=== PATIENT | female | born 1995 | race Caucasian/White ===

== ENCOUNTER 2019-06-01 17:47 | Emergency (ER) | payer SELFPAY ==
[~2019-06-01] VITALS: Ht 152.4 cm; Wt 77.0 kg
[~2019-06-01 17:47] MED LIST: CEPH-443 PO; IBUP-1542 PO
[2019-06-01 17:52] VITALS: Ht 152.4 cm; Wt 77.0 kg
[2019-06-01] MEDS ORDERED: KETOROLAC 30 MG INJ IM STA (18:52)
[2019-06-01 19:35] VITALS: BP 147/90; PULSE 69; RESP 18
--- NOTE | 2019-06-01 21:02 | ERD ---
ER Documentation Chief Complaint Chief Complaint RAMAN,DIZZINESS, NAUSEA HPI This is a previously healthy 23-year-old female presenting to the emergency department with complaints of increased urinary frequency for the past 4 days. Associated symptoms include body aches, headaches, and vague symptoms of lightheadedness. She also reports a fever up to 101 F yesterday. She states her symptoms are mild in severity. She denies any syncope, neck pain, neck stiffness, or other symptoms at this time. ROS All systems reviewed and are negative except as per history of present illness. Medications Home Meds Active Scripts Ibuprofen* (Motrin*) 600 Mg Tab, 600 MG PO Q6, #30 TAB Prov:SILVINO GRANT PA-C 06/01/19 Cephalexin* (Keflex*) 500 Mg Capsule, 500 MG PO BID for 7 Days, CAP Prov:SILVINO GRANT PA-C 06/01/19 Allergies Allergies: Coded Allergies: No Known Allergy (Unverified , 06/01/19) PMhx/Soc History of Surgery: Yes (cyst on ovaries) Hx Alcohol Use: No Hx Substance Use: No Hx Tobacco Use: No Smoking Status: Never smoker FmHx Family History: No diabetes Physical Exam Vitals Vital Signs Date Temp Pulse Resp B/P (MAP) Pulse Ox O2 O2 Flow FiO2 Time Delivery Rate 06/01/19 98.7 69 18 147/90 97 Room Air 19:35 (109) 06/01/19 98.0 72 18 132/77 99 17:52 (95) Physical Exam Const: No acute distress Head: Atraumatic Eyes: Normal Conjunctiva ENT: Normal External Ears, Nose and Mouth. Neck: Full range of motion. No meningismus. Resp: Clear to auscultation bilaterally Cardio: Regular rate and rhythm, no murmurs Abd: Soft, non tender, non distended. Normal bowel sounds Neuro: M/S: Alert and oriented Face: EOMI, face and pharynx with normal sensation and function Motor: Normal strength throughout Sensation: Normal sensation throughout Speech: Normal Cerebel: Normal coordination Normal gait Skin: No petechiae or rashes Back: No midline or flank tenderness Ext: No cyanosis, or edema Neur: Awake and alert Psych: Normal Mood and Affect Results 24 hrs Laboratory Tests Test 06/01/19 18:42 06/01/19 19:01 POC Beta HCG, Qualitative NEGATIVE Bedside Urine pH (LAB) 5.5 Bedside Urine Protein (LAB) Negative Bedside Urine Glucose (UA) Negative Bedside Urine Ketones (LAB) Negative Bedside Urine Blood Trace-lysed Bedside Urine Nitrite (LAB) Negative Bedside Urine Leukocyte Esterase (L Trace Current Medications Medications Dose Sig/Theron Start Time Status Last (Trade) Ordered Route PRN Stop Time Admin Dose Reason Admin Ketorolac 30 mg ONCE STAT 06/01/19 DC 06/01/19 Tromethamine IM 18:52 06/01/19 18:56 (Toradol) 18:54 Procedures/MDM 23-year-old female presenting with concerns for intermittent lightheadedness, increased urinary frequency, and body aches. Urine dip was concerning for mild urinary tract infection. No evidence to suggest pyonephritis, sepsis, seizure, CVA, TIA, or other emergency. Patient was significantly proved after administration of Toradol in the department. Her vital signs are stable. She is nontoxic and well-appearing. She is appropriate for outpatient management at this time. She will be given prescriptions to further treat her symptoms at home. She was advised to return immediately for any new or concerning symptoms. She was advised to have 24 to 48-hour follow-up with her primary care physician. Patient understands and agrees with the plan. Laboratory investigation seemed inappropriate because: Pt seemed well hydrated, systemically stable, and without evidence of acute anemia, kidney disease, liver disease, pancreatitis, or electrolyte imbalance. Head Ct Risks and Benefits: CT Scan of the head was discussed with all present and we agree at this time that a trial of watchful waiting is most appropriate. Departure Diagnosis: Primary Impression: UTI (urinary tract infection) Condition: Fair Patient Instructions: Understanding Urinary Tract Infections (UTIs) Referrals: [facility] YOU HAVE RECEIVED A MEDICAL SCREENING EXAM AND THE RESULTS INDICATE THAT YOU DO NOT HAVE A CONDITION THAT REQUIRES URGENT TREATMENT IN THE EMERGENCY DEPARTMENT. FURTHER EVALUATION AND TREATMENT OF YOUR CONDITION CAN WAIT UNTIL YOU ARE SEEN IN YOUR DOCTORS OFFICE WITHIN THE NEXT 1-2 DAYS. IT IS YOUR RESPONSIBILITY TO MAKE AN APPOINTMENT FOR FOLOW-UP CARE. IF YOU HAVE A PRIMARY DOCTOR --you should call your primary doctor and schedule an appointment IF YOU DO NOT HAVE A PRIMARY DOCTOR YOU CAN CALL OUR PHYSICIAN REFERRAL HOTLINE AT IF YOU CAN NOT AFFORD TO SEE A PHYSICIAN YOU CAN CHOSE FROM THE FOLLOWING [facility] [address] [facility] [address] [facility] [address] [facility] [id number] [facility] [address] [facility]. [facility] [address] Additional Instructions: Call your primary care doctor TOMORROW for an appointment during the next 1-2 days.See the doctor sooner or return here if your condition worsens before your appointment time. SILVINO GRANT PA-C Jun 01, 2019 21:02
== END 2019-06-01 19:35 | disposition home or self-care (01) ==
LOC: FTE 17:47
DX: N39.0 Urinary tract infection, site not specified (principal)
CPT/HCPCS: 81003; 81025; 96372; 99284; J1885